=== PATIENT | female | born 1935 | race Caucasian/White ===

== ENCOUNTER → 2017-01-12 | Outpatient (CLI) | payer BC ==
[2015-10-27 11:59] VITALS: BP 139/58
[~2017-01-12] MED LIST: ASPI81TA50 PO; ATOR40TA59 PO; FURO-68 PO; LISI-334 PO; METO50TA2 PO; OXYM30SP11 NS
--- NOTE | 2017-01-12 16:49 | RAD ---
EXAM: Bilateral breast ultrasound, complete. HISTORY: Breast asymmetry, right larger than left. COMPARISON: None. FINDINGS: Sonography of both entire breasts was performed. Special attention was patent to the asymmetric region of fat deposition along the right lateral chest wall. At the site of concern along the right lateral chest wall, only normal subcutaneous fat is identified. There is no encapsulated lipoma or other suspicious mass. Elsewhere in both breasts, no suspicious abnormalities seen. There are scattered small cysts bilaterally that measure 6 mm or less. IMPRESSION: 1. BI-RADS Category 2: Benign findings. 2. The region of concern along the right lateral chest wall appears to be normal subcutaneous fat. 3. The patient declined diagnostic mammography today. This is recommended to complete the assessment. The patient was unclear as to whether she would desire treatment for breast cancer if it occurred. If such treatment is desired, bilateral diagnostic mammography is recommended now, and bilateral screening mammography is recommended yearly.
== END | disposition home or self-care (01) ==
LOC: US 14:14
PROVIDERS: ATTEND Internal Medicine
DX: N64.89 Other specified disorders of breast (principal)
CPT/HCPCS: 76641

== ENCOUNTER 2017-07-09 06:50 | Emergency (ER) | payer BC ==
[2017-07-09] MEDS: METOPROLOL TART IMMED RELEASE 50 MG TABLET. PO (09:24)
[2017-07-09] MEDS: LISINOPRIL 10 MG TABLET PO (09:24)
[2017-07-09] MEDS: IBUPROFEN 400 MG TABLET. PO (09:40)
== END 2017-07-09 09:38 | disposition home or self-care (01) ==
LOC: ER 06:50
DX: S30.0XXA Contusion of lower back and pelvis, initial encounter (principal); I10 Essential (primary) hypertension; I25.10 Atherosclerotic heart disease of native coronary artery without angina pectoris; Z86.73 Personal history of transient ischemic attack (TIA), and cerebral infarction without residual deficits; W18.39XA Other fall on same level, initial encounter; Y93.89 Activity, other specified; Y99.8 Other external cause status; Y92.89 Other specified places as the place of occurrence of the external cause
CPT/HCPCS: 70450; 73502; 99284

== ENCOUNTER 2020-11-14 19:48 | Observation (INO) | payer BC ==
[~2020-11-14] VITALS: Ht 165.1 cm; Wt 70.4 kg
[~2020-11-14 19:48] MED LIST changes: -LISI-334 PO; +LISI20TA18 PO; -METO50TA2 PO; +METO50TA6 PO; +OXYM-27 NS; -OXYM30SP11 NS
--- NOTE | 2020-11-14 21:40 | PHYS DOC ---
Past Medical History Past Medical History: CAD, Hypertension Past Surgical History: Coronary Bypass Surgery, Hip Replacement, Other Additional Past Surgical Histo: ELBOW, left hip Smoking Status: Never Smoker Alcohol Use: None Drug Use: None General Adult EDM: Chief Complaint: CHEST PAIN HPI: HPI: 85-year-old female patient with self-reported history of cardiac disease presents the emergency department complaining of chest pain that started around 1400 today and is intermittent, sharp and radiates from her front of the chest to the back in between her shoulders. She reports she had a additional episode of chest pain around aged 89 today when she called her family to take her to the emergency department. She admits to being under recent stress due to a recent of a family member. The patient denies abdominal pain, sweating, shortness of air, nausea, vomiting, palpitations or dizziness. Review of Systems: Review of Systems: ROS otherwise negative except for what was mentioned in HPI Heart Score: C/O Chest Pain: Yes HEART Score for Chest Pain: HEART Score for Chest Pain Response (Comments) Value History Moderately Suspicious 1 ECG Normal 0 Age > 65 2 Risk Factors >3 Risk Factors or Hx CAD 2 Troponin < Normal Limit 0 Total 5 Allergies: Allergies: Allergies Coded Allergies Type Severity Reaction Last Updated Verified No Known Drug Allergies 12/02/14 No Physical Exam: PE: Constitutional: No acute distress, non-toxic appearance. HENT: Atraumatic, bilateral external ears normal, nose normal. Eyes: Conjunctiva normal, no discharge. Neck: Normal range of motion, supple, no stridor. Cardiovascular: Heart rate regular rhythm. 2+ radial pulses and equal Lungs & Thorax: No respiratory distress, symmetrical expansion. Chest wall: No reproducible chest wall tenderness to palpation, no lesions. Abdomen: Soft, no tenderness Skin: Warm, dry. Extremities: No tenderness, no cyanosis, ROM intact, no edema. Neurologic: Alert and oriented X 3, normal motor function, normal sensory function, no focal deficits noted. GCS 15. Psychologic: Affect normal, judgment normal, mood normal. Current Patient Data: Labs: Laboratory Tests Test 11/14/20 22:10 White Blood Count 8.4 x10^3/uL (4.0-11.0) Red Blood Count 4.08 x10^6/uL (3.50-5.40) Hemoglobin 11.8 g/dL (12.0-15.5) Hematocrit 35.9 % (36.0-47.0) Mean Corpuscular Volume 88 fL (79-100) Mean Corpuscular Hemoglobin 29 pg (25-35) Mean Corpuscular Hemoglobin Concent 33 g/dL (31-37) Red Cell Distribution Width 15.5 % (11.5-14.5) Platelet Count 221 x10^3/uL (140-400) Neutrophils (%) (Auto) 75 % (31-73) Lymphocytes (%) (Auto) 15 % (24-48) Monocytes (%) (Auto) 9 % (0-9) Eosinophils (%) (Auto) 1 % (0-3) Basophils (%) (Auto) 1 % (0-3) Neutrophils # (Auto) 6.3 x10^3/uL (1.8-7.7) Lymphocytes # (Auto) 1.3 x10^3/uL (1.0-4.8) Monocytes # (Auto) 0.7 x10^3/uL (0.0-1.1) Eosinophils # (Auto) 0.1 x10^3/uL (0.0-0.7) Basophils # (Auto) 0.1 x10^3/uL (0.0-0.2) Sodium Level 142 mmol/L (136-145) Potassium Level 3.7 mmol/L (3.5-5.1) Chloride Level 103 mmol/L (98-107) Carbon Dioxide Level 32 mmol/L (21-32) Anion Gap 7 (6-14) Blood Urea Nitrogen 20 mg/dL (7-20) Creatinine 1.6 mg/dL (0.6-1.0) Estimated GFR (Cockcroft-Gault) 30.7 Glucose Level 108 mg/dL (70-99) Calcium Level 8.7 mg/dL (8.5-10.1) Troponin I Quantitative < 0.017 ng/mL (0.000-0.055) GM-Zoy-T-Type Natriuretic Peptide 379 pg/mL (0-449) Vital Signs: Vital Signs Date Time Temp Pulse Resp B/P (MAP) Pulse Ox O2 Delivery O2 Flow Rate FiO2 11/14/20 21:38 63 18 200/81 (120) 94 Room Air 11/14/20 20:09 97.9 65 131/96 (108) 97 Room Air 97.9 EKG: EK: Normal sinus rhythm rate of 69, no ST-T wave changes, no ectopic beats, left axis deviation, normal MD, QRS, and QTc intervals. Impression: Normal EKG. interpreted by meRuperto D.O. Radiology/Procedures: Radiology/Procedures: Exam: Chest one view INDICATION: Chest pain TECHNIQUE: Frontal view of chest Comparisons: None FINDINGS: Sternotomy wires are noted. The cardiomediastinal silhouette and pulmonary vessels are within normal limits. The lung and pleural spaces are clear. IMPRESSION: No acute pulmonary process. Electronically signed by: Olga Montes MD (11/14/2020 10:23 PM) [] Course & Med Decision Making: Course & Med Decision Making I discussed case with the radiologist on-call, who refused to do the CT angiogram given the patient's kidney function. We will admit the patient to the hospital under Dr. Haas. She clinically looks well at the time of admission. My Orders - RUPERTO MALHOTRA DO Procedure Category Date Status Time Basic Metabolic Panel LAB 11/14/20 Complete 21:52 Cbc W Autodiff LAB 11/14/20 Complete 21:52 Ua, Cult If Indicated LAB 11/14/20 Logged 21:52 Portable Chest 1v RAD 11/14/20 Resulted 21:[address] 11/14/20 Logged 21:52 Nt-Pro Bnp LAB 11/14/20 Complete 21:52 Troponini LAB 11/14/20 Complete 21:52 Troponini LAB 11/15/20 Verified 00:52 Troponini LAB 11/15/20 Verified 03:52 12 Lead Ekg EKG 11/14/20 Logged 21:52 Iv Normal Saline PHA 11/14/20 In Process 500ml Bag (Iv Sodium 22:30 Departure Departure Impression: Primary Impression: Chest pain Disposition: ADMITTED INPATIENT Admitting Physician: LEONELA (Waldo) Condition: STABLE Referrals: SHIVA SANTOS MD (PCP) RUPERTO MALHOTRA DO Nov 14, 2020 21:40
[2020-11-14 22:19] LABS: BASO # 0.1 x10^3/uL (0.0-0.2); BASO % 1 % (0-3); EOS # 0.1 x10^3/uL (0.0-0.7); EOS % 1 % (0-3); HEMATOCRIT 35.9 % (36.0-47.0); HEMOGLOBIN 11.8 g/dL (12.0-15.5); LYMPH # 1.3 x10^3/uL (1.0-4.8); LYMPH % 15 % (24-48); MEAN CORPUSCULAR HEMOGLOBIN 29 pg (25-35); MEAN CORPUSCULAR HGB CONC 33 g/dL (31-37); MEAN CORPUSCULAR VOLUME 88 fL (79-100); MONO # 0.7 x10^3/uL (0.0-1.1); MONO % 9 % (0-9); NEUT # 6.3 x10^3/uL (1.8-7.7); NEUT % 75 % (31-73); PLATELET COUNT 221 x10^3/uL (140-400); RED BLOOD COUNT 4.08 x10^6/uL (3.50-5.40); RED CELL DISTRIBUTION WIDTH 15.5 % (11.5-14.5); WHITE BLOOD COUNT 8.4 x10^3/uL (4.0-11.0)
--- NOTE | 2020-11-14 22:25 | RAD ---
Exam: Chest one view INDICATION: Chest pain TECHNIQUE: Frontal view of chest Comparisons: None FINDINGS: Sternotomy wires are noted. The cardiomediastinal silhouette and pulmonary vessels are within normal limits. The lung and pleural spaces are clear. IMPRESSION: No acute pulmonary process. Electronically signed by: Olga Montes MD (11/14/2020 10:23 PM) [facility]
[2020-11-14 22:26] LABS: CALCIUM 8.7 mg/dL (8.5-10.1); CREATININE 1.6 mg/dL (0.6-1.0); GFR 30.7; POTASSIUM 3.7 mmol/L (3.5-5.1)
[2020-11-14] MEDS ORDERED: IV NORMAL SALINE 500ML BAG 500 ML IV ONE (22:30)
[2020-11-14] MEDS ORDERED: ONDANSETRON PF 4 MG/2 ML VIAL. IVP PRN (23:00)
[2020-11-14] MEDS ORDERED: ACETAMINOPHEN 325 MG TABLET. PO PRN (23:00)
[2020-11-14] MEDS ORDERED: MORPHINE SULFATE 4 MG/ML INJ. IVP PRN (23:00)
[2020-11-14] MEDS ORDERED: IV NORMAL SALINE 1000ML BAG 1,000 ML IV ONE (23:30)
[2020-11-15] VITALS (7 sets, daily range): BP systolic 116–150; BP diastolic 52–75
--- NOTE | 2020-11-15 02:39 | EKG ---
[facility] [address] [place] [address] Test Date: 2020-11-14 Test Time: 19:57:38 Pat Name: RHETT WOODALL Department: Room: 580 1 Gender: F Color Tester: : 1935 Requested By: JEFF MALHOTRA Order Number: [id number] Reading MD: David Hernandez Measurements Intervals [place] Rate: 69 P: -30 HI: 156 QRS: -30 QRSD: 88 T: 10 QT: 422 QTc: 454 Interpretive Statements SINUS RHYTHM ABNORMAL LEFT AXIS DEVIATION LEFT ANTERIOR FASCICULAR BLOCK QRS(T) CONTOUR ABNORMALITY CONSISTENT WITH ANTEROSEPTAL INFARCT PROBABLY OLD ABNORMAL ECG Electronically Signed On 11-16-2020 13:21:10 CDT by David Hernandez
[2020-11-15] MEDS ORDERED: POTA99TA3 PO (02:50)
[2020-11-15] MEDS ORDERED: LOSA-73 PO (02:50)
[2020-11-15] MEDS ORDERED: PRED20TA PO (02:50)
[2020-11-15] MEDS ORDERED: ATOR20TA58 PO (02:50)
[2020-11-15 03:59] LABS: BASO % 1 % (0-3); EOS % 1 % (0-3); HEMATOCRIT 31.3 % (36.0-47.0); HEMOGLOBIN 10.5 g/dL (12.0-15.5); LYMPH # 1.4 x10^3/uL (1.0-4.8); LYMPH % 21 % (24-48); MEAN CORPUSCULAR HEMOGLOBIN 29 pg (25-35); MEAN CORPUSCULAR HGB CONC 34 g/dL (31-37); MEAN CORPUSCULAR VOLUME 86 fL (79-100); MONO # 0.6 x10^3/uL (0.0-1.1); MONO % 9 % (0-9); NEUT # 4.6 x10^3/uL (1.8-7.7); NEUT % 69 % (31-73); PLATELET COUNT 205 x10^3/uL (140-400); RED BLOOD COUNT 3.65 x10^6/uL (3.50-5.40); RED CELL DISTRIBUTION WIDTH 15.6 % (11.5-14.5); WHITE BLOOD COUNT 6.7 x10^3/uL (4.0-11.0)
[2020-11-15 04:13] LABS: CALCIUM 8.1 mg/dL (8.5-10.1); CREATININE 1.4 mg/dL (0.6-1.0); GFR 35.8; POTASSIUM 3.7 mmol/L (3.5-5.1)
--- NOTE | 2020-11-15 10:40 | PDOC1 ---
History and Physical Date of Admission Date of Admission DATE: 11/15/20 TIME: 10:40 Identification/Chief Complaint Chief Complaint chest pain History of Present Illness History of Present Illness 85-year-old female patient with self-reported history of cardiac disease pre sented the emergency department complaining of chest pain that started around 1400 9-12 and is intermittent, sharp and radiates from her front of the chest to the back in between her shoulders. she had a additional episode of chest pain around aged 89 9-12 when she called her family to take her to the emergency department. troponin i neg x 3 She admits to being under recent stress due to a recent of a family member. 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 in 2016 Although, her left-sided weakness resolved relatively quickly Cardiovascular: CAD, HTN Pulmonary: No pertinent hx CENTRAL NERVOUS SYSTEM: Other GI: No pertinent hx Heme/Onc: No pertinent hx Hepatobiliary: No pertinent hx Psych: No pertinent hx Musculoskeletal: Osteoarthritis Rheumatologic: No pertinent hx Infectious disease: No pertinent hx Renal/: No pertinent hx Endocrine: No pertinent hx, Osteoporosis Past Surgical History Past Surgical History: CABG Family History Family History: High Cholestrol, Hypertension Social History Smoke: No ALCOHOL: none Drugs: None Current Problem List Problem List Problems Medical Problems: (1) Chest pain Status: Acute Current Medications Current Medications Current Medications Sodium Chloride 500 ml @ 500 mls/hr 1X ONCE IV Last administered on 11/14/20at 22:30; Start 11/14/20 at 22:30; Stop 11/14/20 at 23:29; Status DC Ondansetron HCl (Zofran) 4 mg PRN Q8HRS PRN IVP NAUSEA/VOMITING 1ST CHOICE; Start 11/14/20 at 23:00; Stop 11/15/20 at 22:59 Morphine Sulfate (Morphine Sulfate) 4 mg PRN Q4HRS PRN IVP SEVERE PAIN 7-10; Start 11/14/20 at 23:00; Stop 9/13/21 at 22:59 Acetaminophen (Tylenol) 650 mg PRN Q4HRS PRN PO FEVER > 100.3'F; Start 11/14/20 at 23:00; Stop 11/15/20 at 22:59 Sodium Chloride 1,000 ml @ 100 mls/hr 1X ONCE IV Last administered on 11/15/20at 01:27; Start 11/14/20 at 23:30; Stop 11/15/20 at 09:29; Status DC Active Scripts Active Nasal Decongestant (Oxymetazoline Hcl) 30 Ml [place] 2 [place] NS PRN Q12HR PRN 14 Days Reported Prednisone 20 Mg Tablet 1 Tab PO PRN DAILY PRN Potassium Gluconate 99 Mg Tablet 99 Mg PO DAILY Atorvastatin Calcium 20 Mg Tablet 20 Mg PO HS Losartan Potassium 50 Mg Tablet 50 Mg PO DAILY Aspir-Low (Aspirin) 81 Mg Tablet.dr 1 Tab PO DAILY Lasix (Furosemide) 40 Mg Tablet 1 Tab PO DAILY Metoprolol Tartrate 50 Mg Tablet 1 Tab PO BID Allergies Allergies: Coded Allergies: No Known Drug Allergies (Unverified , 12/02/14) ROS Review of System 14 pt ros otherwise neg General: No: Chills, Night Sweats, Fatigue, Malaise, Appetite, Other PSYCHOLOGICAL ROS: YES: Anxiety Eyes: Yes Decreased vision; No Blurry vision, No Double vision, No Dry eyes, No Excessive tearing, No Eye Pain, No Itchy Eyes, No Loss of vision, No Photophobia, No Scotomata, No Uses contacts, No Uses glasses, No Other HEENT: No: Heacaches, Visual Changes, Hearing change, Nasal congestion, Nasal discharge, Oral lesions, Sinus pain, Sore Throat, Epistaxis, Sneezing, Snoring, Tinnitus, Vertigo, Vocal changes, Other ALLERGY AND IMMUNOLOGY: No: Hives, Insect Bite Sensitivity, Itchy/Watery Eyes, Nasal Congestion, Post Nasal Drip, Seasonal Allergies, Other Hematological and Lymphatic: No: Bleeding Problems, Blood Clots, Blood Transfusions, Brusing, Night Sweats, Pallor, Swollen Lymph Nodes, Other ENDOCRINE: No: Breast Changes, Galactorrhea, Hair Pattern Changes, Hot Flashes, Malaise/lethargy, Mood Swings, Palpitations, Polydipsia/polyuria, Skin Changes, Temperature Intolerance, Unexpected Weight Changes, Other Cardiovascular: yes Chest Pain; No Palpitations, No Orthopnea, No Paroxysmal Noc. Dyspnea, No Edema, No Lt Headedness, No Other Gastrointestinal: No Nausea, No Vomiting, No Abdominal Pain, No Diarrhea, No Constipation, No Melena, No Hematochezia, No Other Genitourinary: No Dysuria, No Frequency, No Incontinence, No Hematuria, No Retention, No Discharge, No Urgency, No Pain, No Flank Pain, No Other, No , No , No , No , No , No , No Musculoskeletal: Yes Joint Stiffness; No Gait Disturbance, No Joint Pain, No Joint Swelling, No Muscle Pain, No Muscular Weakness, No Pain In:, No Swelling In:, No Other Neurological: No Behavorial Changes, No Bowel/Bladder ControlChng, No Confusion, No Dizziness, No Gait Disturbance, No Headaches, No Impaired Coord/balance, No Memory Loss, No Numbness/Tingling, No Seizures, No Speech Problems, No Tremors, No Visual Changes, No Weakness, No Other Physical Exam Physical Exam Constitutional: No acute distress, non-toxic appearance. HENT: Atraumatic, bilateral external ears normal, nose normal. Eyes: Conjunctiva normal, no discharge. Neck: Normal range of motion, supple, no stridor. Cardiovascular: Heart rate regular rhythm. 2+ radial pulses and equal Lungs & Thorax: No respiratory distress, symmetrical expansion. Chest wall: No reproducible chest wall tenderness to palpation, no lesions. Abdomen: Soft, no tenderness Skin: Warm, dry. Extremities: No tenderness, no cyanosis, ROM intact, no edema. Neurologic: Alert and oriented X 3, normal motor function, normal sensory function, no focal deficits noted. Psychologic: Affect normal, judgment normal, mood normal. General: Alert, Oriented X3, Cooperative, No acute distress HEENT: Atraumatic, PERRLA, EOMI, Mucous membr. moist/pink Heart: RRR, no thrills, no gallops, no jug vein distention Breasts: Not examined Abdomen: Soft, No tenderness Rectal Exam: not examined PELVIC: Examination not indicated Extremities: No cyanosis Skin: No breakdown Neuro: Normal speech, Cranial nerves 3-12 NL Psych/Mental Status: Mental status NL Vitals Vitals Vital Signs Date Time Temp Pulse Resp B/P (MAP) Pulse Ox O2 Delivery O2 Flow Rate FiO2 11/15/20 07:00 98.5 66 20 126/52 (76) 99 Room Air 98.5 Labs Labs Laboratory Tests Test 11/14/20 22:10 11/15/20 00:50 11/15/20 03:50 White Blood Count 8.4 x10^3/uL (4.0-11.0) 6.7 x10^3/uL (4.0-11.0) Red Blood Count 4.08 x10^6/uL (3.50-5.40) 3.65 x10^6/uL (3.50-5.40) Hemoglobin 11.8 g/dL (12.0-15.5) 10.5 g/dL (12.0-15.5) Hematocrit 35.9 % (36.0-47.0) 31.3 % (36.0-47.0) Mean Corpuscular Volume 88 fL (79-100) 86 fL (79-100) Mean Corpuscular Hemoglobin 29 pg (25-35) 29 pg (25-35) Mean Corpuscular Hemoglobin Concent 33 g/dL (31-37) 34 g/dL (31-37) Red Cell Distribution Width 15.5 % (11.5-14.5) 15.6 % (11.5-14.5) Platelet Count 221 x10^3/uL (140-400) 205 x10^3/uL (140-400) Neutrophils (%) (Auto) 75 % (31-73) 69 % (31-73) Lymphocytes (%) (Auto) 15 % (24-48) 21 % (24-48) Monocytes (%) (Auto) 9 % (0-9) 9 % (0-9) Eosinophils (%) (Auto) 1 % (0-3) 1 % (0-3) Basophils (%) (Auto) 1 % (0-3) 1 % (0-3) Neutrophils # (Auto) 6.3 x10^3/uL (1.8-7.7) 4.6 x10^3/uL (1.8-7.7) Lymphocytes # (Auto) 1.3 x10^3/uL (1.0-4.8) 1.4 x10^3/uL (1.0-4.8) Monocytes # (Auto) 0.7 x10^3/uL (0.0-1.1) 0.6 x10^3/uL (0.0-1.1) Eosinophils # (Auto) 0.1 x10^3/uL (0.0-0.7) 0.0 x10^3/uL (0.0-0.7) Basophils # (Auto) 0.1 x10^3/uL (0.0-0.2) 0.0 x10^3/uL (0.0-0.2) Sodium Level 142 mmol/L (136-145) 144 mmol/L (136-145) Potassium Level 3.7 mmol/L (3.5-5.1) 3.7 mmol/L (3.5-5.1) Chloride Level 103 mmol/L (98-107) 107 mmol/L (98-107) Carbon Dioxide Level 32 mmol/L (21-32) 31 mmol/L (21-32) Anion Gap 7 (6-14) 6 (6-14) Blood Urea Nitrogen 20 mg/dL (7-20) 18 mg/dL (7-20) Creatinine 1.6 mg/dL (0.6-1.0) 1.4 mg/dL (0.6-1.0) Estimated GFR (Cockcroft-Gault) 30.7 35.8 Glucose Level 108 mg/dL (70-99) 95 mg/dL (70-99) Calcium Level 8.7 mg/dL (8.5-10.1) 8.1 mg/dL (8.5-10.1) Troponin I Quantitative < 0.017 ng/mL (0.000-0.055) < 0.017 ng/mL (0.000-0.055) < 0.017 ng/mL (0.000-0.055) GD-Niz-S-Type Natriuretic Peptide 379 pg/mL (0-449) Laboratory Tests Test 11/14/20 22:10 11/15/20 00:50 11/15/20 03:50 White Blood Count 8.4 x10^3/uL (4.0-11.0) 6.7 x10^3/uL (4.0-11.0) Red Blood Count 4.08 x10^6/uL (3.50-5.40) 3.65 x10^6/uL (3.50-5.40) Hemoglobin 11.8 g/dL (12.0-15.5) 10.5 g/dL (12.0-15.5) Hematocrit 35.9 % (36.0-47.0) 31.3 % (36.0-47.0) Mean Corpuscular Volume 88 fL (79-100) 86 fL (79-100) Mean Corpuscular Hemoglobin 29 pg (25-35) 29 pg (25-35) Mean Corpuscular Hemoglobin Concent 33 g/dL (31-37) 34 g/dL (31-37) Red Cell Distribution Width 15.5 % (11.5-14.5) 15.6 % (11.5-14.5) Platelet Count 221 x10^3/uL (140-400) 205 x10^3/uL (140-400) Neutrophils (%) (Auto) 75 % (31-73) 69 % (31-73) Lymphocytes (%) (Auto) 15 % (24-48) 21 % (24-48) Monocytes (%) (Auto) 9 % (0-9) 9 % (0-9) Eosinophils (%) (Auto) 1 % (0-3) 1 % (0-3) Basophils (%) (Auto) 1 % (0-3) 1 % (0-3) Neutrophils # (Auto) 6.3 x10^3/uL (1.8-7.7) 4.6 x10^3/uL (1.8-7.7) Lymphocytes # (Auto) 1.3 x10^3/uL (1.0-4.8) 1.4 x10^3/uL (1.0-4.8) Monocytes # (Auto) 0.7 x10^3/uL (0.0-1.1) 0.6 x10^3/uL (0.0-1.1) Eosinophils # (Auto) 0.1 x10^3/uL (0.0-0.7) 0.0 x10^3/uL (0.0-0.7) Basophils # (Auto) 0.1 x10^3/uL (0.0-0.2) 0.0 x10^3/uL (0.0-0.2) Sodium Level 142 mmol/L (136-145) 144 mmol/L (136-145) Potassium Level 3.7 mmol/L (3.5-5.1) 3.7 mmol/L (3.5-5.1) Chloride Level 103 mmol/L (98-107) 107 mmol/L (98-107) Carbon Dioxide Level 32 mmol/L (21-32) 31 mmol/L (21-32) Anion Gap 7 (6-14) 6 (6-14) Blood Urea Nitrogen 20 mg/dL (7-20) 18 mg/dL (7-20) Creatinine 1.6 mg/dL (0.6-1.0) 1.4 mg/dL (0.6-1.0) Estimated GFR (Cockcroft-Gault) 30.7 35.8 Glucose Level 108 mg/dL (70-99) 95 mg/dL (70-99) Calcium Level 8.7 mg/dL (8.5-10.1) 8.1 mg/dL (8.5-10.1) Troponin I Quantitative < 0.017 ng/mL (0.000-0.055) < 0.017 ng/mL (0.000-0.055) < 0.017 ng/mL (0.000-0.055) EK-Yzd-J-Type Natriuretic Peptide 379 pg/mL (0-449) Images Images PROCEDURE MRI brain with and without contrast. HISTORY Severe mental status change. TECHNIQUE Sagittal T1, axial T1, axial T2, axial FLAIR, axial T2 gradient, diffusion imaging with ADC map, post-contrast axial, post contrast sagittal, and post-contrast coronal sequences are provided. 9 milliliters of intravenous Gadavist was administered without complication. COMPARISON CT head from earlier today. FINDINGS There is a large area of restricted diffusion involving the right temporal lobe and parietal lobe as well as the insula and caudate head. There is mild ADC correlate. There is associated blooming artifact. There is associated enhancement although the enhancement predominantly appears cortical. Cortical enhancement as well as the restricted diffusion and associated FLAIR hyperintensity is most suggestive of subacute infarct. Old blood product is noted in the left basal ganglia compatible with remote microhemorrhage. There is prominence of the ventricles and sulci. There is mild probable small-vessel ischemic disease. There is motion degradation, intracranial flow voids are preserved centrally although the right middle cerebral artery flow void is not well evaluated. The sagittal midline structures are unremarkable. There is ethmoid mucosal thickening. IMPRESSION Imaging characteristics most suggestive of subacute infarct involving the right temporal lobe, parietal lobe, insula, and basal ganglia. Three-month follow-up MRI to the document expected evolution can be considered. Electronically signed by: Henry Fierro MD (Oct 20, 2015 12:11:46) PATIENT: RHETT WOODALL ACCOUNT: [id number] : 1935 LOCATION: ER AGE: 85 SEX: F EXAM STATUS: REG ER ORD. PHYSICIAN: JEFF MALHOTRA DO REASON: CHEST PAIN PROCEDURE: PORTABLE CHEST 1V Exam: Chest one view INDICATION: Chest pain TECHNIQUE: Frontal view of chest Comparisons: None FINDINGS: Sternotomy wires are noted. The cardiomediastinal silhouette and pulmonary vessels are within normal limits. The lung and pleural spaces are clear. IMPRESSION: No acute pulmonary process. Electronically signed by: Olga Izquierdo MD (11/14/2020 10:23 PM) [facility] DICTATED and SIGNED BY: OLGA IZQUIERDO MD DATE: 11/14/20 [id number] 0 talk about your own wishes for healthcare in case youre ever not able to tell your loved ones or healthcare team what your wishes are. If you became really sick tomorrow, would your loved ones or healthcare team know what your wishes were? Here are some examples of different sets of goals and health care directives for your conversations: My wish is to use all medical therapies including resuscitation (such as CPR) and artificial life-sustaining treatments (such as machines and medicine) in an intensive care unit, to keep me alive if at all possible. My wish is to live as long as possible, but I dont want attempts to bring me back to life if my heart and breathing stop. I would like full medical care but without using resuscitation or artificial life-sustaining intensive treatments, if these are unlikely to make me live longer or restore me to a certain quality of life. I will accept treatments that try to fix medical problems, but if Im not getting better or going to have a certain quality of life, I would want to switch to focusing only on my comfort and letting my happen naturally. My wish is for healthcare to focus on my comfort and lessen suffering. I would like medical care that focuses only on my quality of life and that allows me to naturally. Consider: What does a good quality of life mean for me? For many people, it is the ability to live independently and tell their own story. I may define it differently. Under what circumstances would I not want to be kept alive by medical treatments, resuscitation, or intensive care? What kind of changes to my health or life might make me change my mind? If I clearly am facing the last chapter of my life, how do I want the story to end? Who do I want to speak for me if I cant speak for myself? Do they understand my preferences? Are they willing to assume the role of my Durable Power of Customer Service Voice? Can I change my Goals of Care Designation? Yes, your Goals of Care Designation can be changed at any time. 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
--- NOTE | 2020-11-15 11:41 | NUR ---
SW following. Discussed with RN, pt from home with son, room air, cardiac diet. Pt uses a walker and gets around okay, per RN. PT/OT ST ordered. Cardiology following. SW will continue to follow.
--- NOTE | 2020-11-15 13:32 | PDOC2 ---
MEHUL PASCUAL OCEANOGRAPHY PROFESSOR 11/15/20 1332: CARDIAC CONSULT DATE OF CONSULT Date of Consult DATE: 11/15/20 TIME: 13:28 REASON FOR CONSULT Reason for Consult: Chest pain REFERRING PHYSICIAN Referring Physician: Dr. Clayton SOURCE Source: Chart review, Patient HISTORY OF PRESENT ILLNESS HISTORY OF PRESENT ILLNESS This is an 85 yo female who presented secondary to chest pain. Patient reports intermittent sharp, stabbing pain in her central chest. Radiated through to her back. Not associated with dizziness, shortness of breath, palpitations, or nausea/vomiting. Reports pain lasts seconds and resolves without intervention. Is feeling well today and has no further chest pain. PAST MEDICAL HISTORY Cardiovascular: AFIB, CAD, HTN, Hyperlipidemia Psych: Depression Musculoskeletal: Osteoarthritis PAST SURGICAL HISTORY Past Surgical History: Cholecystectomy, CABG FAMILY HISTORY Family History: Hypertension SOCIAL HISTORY Smoke: No ALCOHOL: none Drugs: None CURRENT MEDICATIONS CURRENT MEDICATIONS Current Medications Medications (Trade) Dose Ordered Sig/Linnette Route PRN Reason Start Time Stop Time Status Last Admin Dose Admin Sodium Chloride 500 ml @ 500 mls/hr 1X ONCE IV 11/14/20 22:30 11/14/20 23:29 DC 11/14/20 22:30 Sodium Chloride 1,000 ml @ 100 mls/hr 1X ONCE IV 11/14/20 23:30 11/15/20 09:29 DC 11/15/20 01:27 ALLERGIES ALLERGIES: Coded Allergies: No Known Drug Allergies (Unverified , 12/02/14) ROS Review of System 14 point ROS conducted with pertinent positives noted above in hPI PHYSICAL EXAM General: Alert, Oriented X3, Cooperative, No acute distress HEENT: Atraumatic Lungs: Clear to auscultation Heart: Regular rate Abdomen: Soft, No tenderness Extremities: No edema, Normal pulses Skin: No significant lesion Neuro: Normal speech, Sensation intact Psych/Mental Status: Mental status NL, Mood NL MUSCULOSKELETAL: Osteoarthritic changes both hands VITALS/I&O VITALS/I&O: Vital Signs Date Time Temp Pulse Resp B/P (MAP) Pulse Ox O2 Delivery O2 Flow Rate FiO2 11/15/20 11:00 98.3 72 18 140/59 (86) 99 Room Air 98.3 I & O 11/14/20 11/14/20 11/15/20 15:00 23:00 07:00 Intake Total 150 ml Balance 150 ml LABS Lab: Laboratory Tests Test 11/14/20 22:10 11/15/20 00:50 11/15/20 03:50 White Blood Count 8.4 x10^3/uL (4.0-11.0) 6.7 x10^3/uL (4.0-11.0) Red Blood Count 4.08 x10^6/uL (3.50-5.40) 3.65 x10^6/uL (3.50-5.40) Hemoglobin 11.8 g/dL (12.0-15.5) L 10.5 g/dL (12.0-15.5) L Hematocrit 35.9 % (36.0-47.0) L 31.3 % (36.0-47.0) L Mean Corpuscular Volume 88 fL (79-100) 86 fL (79-100) Mean Corpuscular Hemoglobin 29 pg (25-35) 29 pg (25-35) Mean Corpuscular Hemoglobin Concent 33 g/dL (31-37) 34 g/dL (31-37) Red Cell Distribution Width 15.5 % (11.5-14.5) H 15.6 % (11.5-14.5) H Platelet Count 221 x10^3/uL (140-400) 205 x10^3/uL (140-400) Neutrophils (%) (Auto) 75 % (31-73) H 69 % (31-73) Lymphocytes (%) (Auto) 15 % (24-48) L 21 % (24-48) L Monocytes (%) (Auto) 9 % (0-9) 9 % (0-9) Eosinophils (%) (Auto) 1 % (0-3) 1 % (0-3) Basophils (%) (Auto) 1 % (0-3) 1 % (0-3) Neutrophils # (Auto) 6.3 x10^3/uL (1.8-7.7) 4.6 x10^3/uL (1.8-7.7) Lymphocytes # (Auto) 1.3 x10^3/uL (1.0-4.8) 1.4 x10^3/uL (1.0-4.8) Monocytes # (Auto) 0.7 x10^3/uL (0.0-1.1) 0.6 x10^3/uL (0.0-1.1) Eosinophils # (Auto) 0.1 x10^3/uL (0.0-0.7) 0.0 x10^3/uL (0.0-0.7) Basophils # (Auto) 0.1 x10^3/uL (0.0-0.2) 0.0 x10^3/uL (0.0-0.2) Sodium Level 142 mmol/L (136-145) 144 mmol/L (136-145) Potassium Level 3.7 mmol/L (3.5-5.1) 3.7 mmol/L (3.5-5.1) Chloride Level 103 mmol/L (98-107) 107 mmol/L (98-107) Carbon Dioxide Level 32 mmol/L (21-32) 31 mmol/L (21-32) Anion Gap 7 (6-14) 6 (6-14) Blood Urea Nitrogen 20 mg/dL (7-20) 18 mg/dL (7-20) Creatinine 1.6 mg/dL (0.6-1.0) H 1.4 mg/dL (0.6-1.0) H Estimated GFR (Cockcroft-Gault) 30.7 35.8 Glucose Level 108 mg/dL (70-99) H 95 mg/dL (70-99) Calcium Level 8.7 mg/dL (8.5-10.1) 8.1 mg/dL (8.5-10.1) L Troponin I Quantitative < 0.017 ng/mL (0.000-0.055) < 0.017 ng/mL (0.000-0.055) < 0.017 ng/mL (0.000-0.055) UV-Yqu-L-Type Natriuretic Peptide 379 pg/mL (0-449) Laboratory Tests 11/14/20 22:10 11/15/20 03:50 Laboratory Tests 11/14/20 22:10 11/15/20 03:50 ECHOCARDIOGRAM ECHOCARDIOGRAM 04/22/18 - 2-D + DOPPLER ECHOCARDIOGRAM Interpretation Summary Normal left ventricular systolic function, estimated ejection fraction is 55%. Mild predominantly mid septal hypertrophy. There is severe mitral annular calcification without stenosis. Trace mitral valve regurgitation, mild tricuspid valve regurgitation. The pulmonary artery pressure could not be obtained. ASSESSMENT/PLAN ASSESSMENT/PLAN 1. Chest pain, atypical. AMI ruled out 2. CAD s/p CABG 2012. Follows with Dr. Michaelle DIEGO 3. Hypertension; controlled 4. Hyperlipidemia; statin 5. FLORIDALMA; improved 6. PAFIB; post-operative. presently SR 7. H/o CVA Recommendations Continue secondary prevention; ASA, statin, BB therapy Echo to assess LV systolic function Lipids Probable outpatient ischemic evaluations Supportive care YANELI RIVERA MD 11/15/20 1722: CARDIAC CONSULT ASSESSMENT/PLAN ASSESSMENT/PLAN Patient seen and examined I agree with our nurse practitioners assessment and plan. Chest pain, atypical. AMI ruled out. Troponin x3 is normal. Patient is feeling better today. Continuing aspirin and beta-blockers. CAD s/p CABG 2012. Follows with Dr. Michaelle DIEGO. Continue present medical treatments. Echo pending. Probable outpatient ischemia evaluation through her primary heel padder. Hypertension; controlled Hyperlipidemia; statin FLORIDALMA; improved PAFIB; post-operative. presently SR H/o CVA MEHUL PASCUAL APRN Nov 15, 2020 13:32 YANELI RIVERA MD Nov 15, 2020 17:22
[2020-11-15 13:58] LABS: CHOLESTEROL/HDL RATIO 2.5
[2020-11-15] MEDS ORDERED: METOPROLOL IV PUSH 5 MG/5 ML VIAL. IVP ONE (15:30)
[2020-11-15] MEDS: METOPROLOL TART IMMED RELEASE 50 MG TABLET. PO SCH ×2 (17:34→20:47)
[2020-11-15] MEDS ORDERED: ATORVASTATIN CALCIUM 20 MG TABLET PO SCH ×2 (21:00)
[2020-11-15] MEDS ORDERED: METOPROLOL TART IMMED RELEASE 50 MG TABLET. PO SCH (21:00)
[2020-11-16 03:00] VITALS: BP 120/72
[2020-11-16 07:00] VITALS: BP 138/72
--- NOTE | 2020-11-16 08:22 | PDOC ---
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 AMI ruled out CAD s/p CABG 2012. Follows with Dr. Michaelle DIEGO Hypertension; controlled ADMITTED CARDIOLOGY CONSULT Trend troponin i tele monitor dvt prophylaxis consider out pt stress //outpatient ischemia evaluation through her primary professor of early childhood education. 11-16-20 D/C PLANNING 33 MIN Justifications for Admission Justifications for Admission Other Justification History of Present Illness History of Present Illness Identification/Chief Complaint Chief Complaint chest pain History of Present Illness History of Present Illness 85-year-old female patient with self-reported history of cardiac disease presented the emergency department complaining of chest pain that started around 1400 9-12 and is intermittent, sharp and radiates from her front of the chest to the back in between her shoulders. she had a additional episode of chest pain around aged 89 9-12 when she called her family to take her to the emergency department. troponin i neg x 3 She admits to being under recent stress due to a recent of a family member. 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 in 2016 Although, her left-sided weakness resolved relatively quickly Cardiovascular: CAD, HTN Pulmonary: No pertinent hx CENTRAL NERVOUS SYSTEM: Other GI: No pertinent hx Heme/Onc: No pertinent hx Hepatobiliary: No pertinent hx Psych: No pertinent hx Musculoskeletal: Osteoarthritis Rheumatologic: No pertinent hx Infectious disease: No pertinent hx Renal/: No pertinent hx Endocrine: No pertinent hx, Osteoporosis Past Surgical History Past Surgical History: CABG Family History Family History: High Cholestrol, Hypertension Social History Smoke: No ALCOHOL: none Drugs: None Current Problem List Problem List Problems Medical Problems: (1) Chest pain Status: Acute Current Medications Current Medications Current Medications Sodium Chloride 500 ml @ 500 mls/hr 1X ONCE IV Last administered on 11/14/20at 22:30; Start 11/14/20 at 22:30; Stop 11/14/20 at 23:29; Status DC Ondansetron HCl (Zofran) 4 mg PRN Q8HRS PRN IVP NAUSEA/VOMITING 1ST CHOICE; Start 11/14/20 at 23:00; Stop 11/15/20 at 22:59 Morphine Sulfate (Morphine Sulfate) 4 mg PRN Q4HRS PRN IVP SEVERE PAIN 7-10; Start 11/14/20 at 23:00; Stop 11/15/20 at 22:59 Acetaminophen (Tylenol) 650 mg PRN Q4HRS PRN PO FEVER > 100.3'F; Start 11/14/20 at 23:00; Stop 11/15/20 at 22:59 Sodium Chloride 1,000 ml @ 100 mls/hr 1X ONCE IV Last administered on 11/15/20at 01:27; Start 11/14/20 at 23:30; Stop 11/15/20 at 09:29; Status DC Active Scripts Active Nasal Decongestant (Oxymetazoline Hcl) 30 Ml Kahlotus 2 Kahlotus NS PRN Q12HR PRN 14 Days Reported Prednisone 20 Mg Tablet 1 Tab PO PRN DAILY PRN Potassium Gluconate 99 Mg Tablet 99 Mg PO DAILY Atorvastatin Calcium 20 Mg Tablet 20 Mg PO HS Losartan Potassium 50 Mg Tablet 50 Mg PO DAILY Aspir-Low (Aspirin) 81 Mg Tablet.dr 1 Tab PO DAILY Lasix (Furosemide) 40 Mg Tablet 1 Tab PO DAILY Metoprolol Tartrate 50 Mg Tablet 1 Tab PO BID Allergies Allergies: Coded Allergies: No Known Drug Allergies (Unverified , 12/02/14) ROS Review of System 14 pt ros otherwise neg General: No: Chills, Night Sweats, Fatigue, Malaise, Appetite, Other PSYCHOLOGICAL ROS: YES: Anxiety Eyes: Yes Decreased vision; No Blurry vision, No Double vision, No Dry eyes, No Excessive tearing, No Eye Pain, No Itchy Eyes, No Loss of vision, No Photophobia, No Scotomata, No Uses contacts, No Uses glasses, No Other HEENT: No: Heacaches, Visual Changes, Hearing change, Nasal congestion, Nasal discharge, Oral lesions, Sinus pain, Sore Throat, Epistaxis, Sneezing, Snoring, Tinnitus, Vertigo, Vocal changes, Other ALLERGY AND IMMUNOLOGY: No: Hives, Insect Bite Sensitivity, Itchy/Watery Eyes, Nasal Congestion, Post Nasal Drip, Seasonal Allergies, Other Hematological and Lymphatic: No: Bleeding Problems, Blood Clots, Blood Transfusions, Brusing, Night Sweats, Pallor, Swollen Lymph Nodes, Other ENDOCRINE: No: Breast Changes, Galactorrhea, Hair Pattern Changes, Hot Flashes, Malaise/lethargy, Mood Swings, Palpitations, Polydipsia/polyuria, Skin Changes, Temperature Intolerance, Unexpected Weight Changes, Other Cardiovascular: yes Chest Pain; No Palpitations, No Orthopnea, No Paroxysmal Noc. Dyspnea, No Edema, No Lt Headedness, No Other Gastrointestinal: No Nausea, No Vomiting, No Abdominal Pain, No Diarrhea, No Constipation, No Melena, No Hematochezia, No Other Genitourinary: No Dysuria, No Frequency, No Incontinence, No Hematuria, No Retention, No Discharge, No Urgency, No Pain, No Flank Pain, No Other, No , No , No , No , No , No , No Musculoskeletal: Yes Joint Stiffness; No Gait Disturbance, No Joint Pain, No Joint Swelling, No Muscle Pain, No Muscular Weakness, No Pain In:, No Swelling In:, No Other Neurological: No Behavorial Changes, No Bowel/Bladder ControlChng, No Confusion, No Dizziness, No Gait Disturbance, No Headaches, No Impaired Coord/balance, No Memory Loss, No Numbness/Tingling, No Seizures, No Speech Problems, No Tremors, No Visual Changes, No Weakness, No Other Vitals Vitals Vital Signs Date Time Temp Pulse Resp B/P (MAP) Pulse Ox O2 Delivery O2 Flow Rate FiO2 11/16/20 07:00 98.1 104 18 138/72 (94) 93 Room Air 98.1 Physical Exam General: Alert, Oriented X3, Cooperative, No acute distress Heart: Regular rate Lungs: Clear Abdomen: Soft, No tenderness Extremities: No edema, Normal pulses Skin: No significant lesion Assessment and Plan Assessmemt and Plan Problems Medical Problems: (1) Chest pain Status: Acute Comment Review of Relevant I have reviewed the following items kemi (where applicable) has been applied. Labs Laboratory Tests Test 11/14/20 22:10 11/15/20 00:50 9/13/21 03:50 White Blood Count 8.4 x10^3/uL (4.0-11.0) 6.7 x10^3/uL (4.0-11.0) Red Blood Count 4.08 x10^6/uL (3.50-5.40) 3.65 x10^6/uL (3.50-5.40) Hemoglobin 11.8 g/dL (12.0-15.5) 10.5 g/dL (12.0-15.5) Hematocrit 35.9 % (36.0-47.0) 31.3 % (36.0-47.0) Mean Corpuscular Volume 88 fL (79-100) 86 fL (79-100) Mean Corpuscular Hemoglobin 29 pg (25-35) 29 pg (25-35) Mean Corpuscular Hemoglobin Concent 33 g/dL (31-37) 34 g/dL (31-37) Red Cell Distribution Width 15.5 % (11.5-14.5) 15.6 % (11.5-14.5) Platelet Count 221 x10^3/uL (140-400) 205 x10^3/uL (140-400) Neutrophils (%) (Auto) 75 % (31-73) 69 % (31-73) Lymphocytes (%) (Auto) 15 % (24-48) 21 % (24-48) Monocytes (%) (Auto) 9 % (0-9) 9 % (0-9) Eosinophils (%) (Auto) 1 % (0-3) 1 % (0-3) Basophils (%) (Auto) 1 % (0-3) 1 % (0-3) Neutrophils # (Auto) 6.3 x10^3/uL (1.8-7.7) 4.6 x10^3/uL (1.8-7.7) Lymphocytes # (Auto) 1.3 x10^3/uL (1.0-4.8) 1.4 x10^3/uL (1.0-4.8) Monocytes # (Auto) 0.7 x10^3/uL (0.0-1.1) 0.6 x10^3/uL (0.0-1.1) Eosinophils # (Auto) 0.1 x10^3/uL (0.0-0.7) 0.0 x10^3/uL (0.0-0.7) Basophils # (Auto) 0.1 x10^3/uL (0.0-0.2) 0.0 x10^3/uL (0.0-0.2) Sodium Level 142 mmol/L (136-145) 144 mmol/L (136-145) Potassium Level 3.7 mmol/L (3.5-5.1) 3.7 mmol/L (3.5-5.1) Chloride Level 103 mmol/L (98-107) 107 mmol/L (98-107) Carbon Dioxide Level 32 mmol/L (21-32) 31 mmol/L (21-32) Anion Gap 7 (6-14) 6 (6-14) Blood Urea Nitrogen 20 mg/dL (7-20) 18 mg/dL (7-20) Creatinine 1.6 mg/dL (0.6-1.0) 1.4 mg/dL (0.6-1.0) Estimated GFR (Cockcroft-Gault) 30.7 35.8 Glucose Level 108 mg/dL (70-99) 95 mg/dL (70-99) Calcium Level 8.7 mg/dL (8.5-10.1) 8.1 mg/dL (8.5-10.1) Troponin I Quantitative < 0.017 ng/mL (0.000-0.055) < 0.017 ng/mL (0.000-0.055) < 0.017 ng/mL (0.000-0.055) WC-[id number]-[id number]-Type Natriuretic Peptide 379 pg/mL (0-449) Triglycerides Level 93 mg/dL (0-150) Cholesterol Level 91 mg/dL (0-200) LDL Cholesterol, Calculated 36 mg/dL (0-100) VLDL Cholesterol, Calculated 19 mg/dL (0-40) Non-HDL Cholesterol Calculated 55 mg/dL (0-129) HDL Cholesterol 36 mg/dL (40-60) Cholesterol/HDL Ratio 2.5 Medications Current Medications Sodium Chloride 500 ml @ 500 mls/hr 1X ONCE IV Last administered on 11/14/20at 22:30; Start 11/14/20 at 22:30; Stop 11/14/20 at 23:29; Status DC Ondansetron HCl (Zofran) 4 mg PRN Q8HRS PRN IVP NAUSEA/VOMITING 1ST CHOICE; Start 11/14/20 at 23:00; Stop 11/15/20 at 22:59; Status DC Morphine Sulfate (Morphine Sulfate) 4 mg PRN Q4HRS PRN IVP SEVERE PAIN 7-10; Start 11/14/20 at 23:00; Stop 11/15/20 at 22:59; Status DC Acetaminophen (Tylenol) 650 mg PRN Q4HRS PRN PO FEVER > 100.3'F; Start 11/14/20 at 23:00; Stop 11/15/20 at 22:59; Status DC Sodium Chloride 1,000 ml @ 100 mls/hr 1X ONCE IV Last administered on 11/15/20at 01:27; Start 11/14/20 at 23:30; Stop 11/15/20 at 09:29; Status DC Aspirin (Ecotrin) 81 mg DAILY PO ; Start 11/16/20 at 09:00 Atorvastatin Calcium (Lipitor) 20 mg HS PO ; Start 11/15/20 at 21:00; Stop 11/15/20 at 16:16; Status DC Furosemide (Lasix) 40 mg DAILY PO ; Start 11/16/20 at 09:00 Metoprolol Tartrate (Lopressor) 50 mg BID PO ; Start 11/15/20 at 21:00; Stop 11/15/20 at 16:16; Status DC Metoprolol Tartrate (Lopressor Vial) 2.5 mg 1X ONCE IVP Last administered on 11/15/20at 15:36; Start 11/15/20 at 15:30; Stop 11/15/20 at 15:31; Status DC Atorvastatin Calcium (Lipitor) 40 mg HS PO Last administered on 11/15/20at 20:47; Start 11/15/20 at 21:00 Metoprolol Tartrate (Lopressor) 50 mg BID PO Last administered on 11/15/20at 20:47; Start 11/15/20 at 16:15 Active Scripts Active Nasal Decongestant (Oxymetazoline Hcl) 30 Ml Kahlotus 2 Kahlotus NS PRN Q12HR PRN 14 Days Reported Prednisone 20 Mg Tablet 1 Tab PO PRN DAILY PRN Potassium Gluconate 99 Mg Tablet 99 Mg PO DAILY Atorvastatin Calcium 20 Mg Tablet 20 Mg PO HS Losartan Potassium 50 Mg Tablet 50 Mg PO DAILY Aspir-Low (Aspirin) 81 Mg Tablet.dr 1 Tab PO DAILY Lasix (Furosemide) 40 Mg Tablet 1 Tab PO DAILY Metoprolol Tartrate 50 Mg Tablet 1 Tab PO BID Vitals/I & O Vital Sign - Last 24 Hours 11/15/20 11/15/20 11/15/20 11/15/20 11:00 15:00 15:36 17:34 Temp 98.3 98.3 98.3 98.3 Pulse 72 125 125 125 Resp 18 17 B/P (MAP) 140/59 (86) 139/75 (96) 139/75 139/75 Pulse Ox 99 94 O2 Delivery Room Air Room Air 11/15/20 11/15/20 11/15/20 11/15/20 19:00 20:10 20:47 20:49 Temp 101.0 100.2 101.0 100.2 Pulse 101 101 Resp 18 B/P (MAP) 116/66 (83) 116/66 Pulse Ox 93 O2 Delivery Room Air Room Air 11/15/20 11/16/20 11/16/20 23:00 03:00 07:00 Temp 98.0 99.6 98.1 98.0 99.6 98.1 Pulse 88 83 104 Resp 18 18 18 B/P (MAP) 119/60 (79) 120/72 (88) 138/72 (94) Pulse Ox 91 92 93 O2 Delivery Room Air Room Air Room Air Intake and Output 11/15/20 11/15/20 11/16/20 15:00 23:00 07:00 Intake Total 120 ml 120 ml Balance 120 ml 120 ml Justicifation of Admission Dx: Justifications for Admission: Justification of Admission Dx: No MARI MUNOZ MD Nov 16, 2020 08:22
[2020-11-16] MEDS ORDERED: ASPIRIN ENTERIC COATED 81 MG TABLET.DR. PO SCH (09:00)
[2020-11-16] MEDS ORDERED: FUROSEMIDE 40 MG TABLET. PO SCH (09:00)
[2020-11-16] MEDS: METOPROLOL TART IMMED RELEASE 50 MG TABLET. PO SCH (09:35)
--- NOTE | 2020-11-16 10:27 | PDOC3 ---
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 AMI ruled out CAD s/p CABG 2012. Follows with Dr. Michaelle DIEGO Hypertension; controlled ADMITTED CARDIOLOGY CONSULT Trend troponin i tele monitor dvt prophylaxis consider out pt stress //outpatient ischemia evaluation through her primary sort line. 11-16-20 D/C PLANNING 33 MIN Justifications for Admission Justifications for Admission Other Justification History of Present Illness History of Present Illness Identification/Chief Complaint Chief Complaint chest pain History of Present Illness History of Present Illness 85-year-old female patient with self-reported history of cardiac disease presented the emergency department complaining of chest pain that started around 1400 9-12 and is intermittent, sharp and radiates from her front of the chest to the back in between her shoulders. she had a additional episode of chest pain around aged 89 9-12 when she called her family to take her to the emergency department. troponin i neg x 3 She admits to being under recent stress due to a recent of a family member. 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 in 2016 Although, her left-sided weakness resolved relatively quickly Cardiovascular: CAD, HTN Pulmonary: No pertinent hx CENTRAL NERVOUS SYSTEM: Other GI: No pertinent hx Heme/Onc: No pertinent hx Hepatobiliary: No pertinent hx Psych: No pertinent hx Musculoskeletal: Osteoarthritis Rheumatologic: No pertinent hx Infectious disease: No pertinent hx Renal/: No pertinent hx Endocrine: No pertinent hx, Osteoporosis Past Surgical History Past Surgical History: CABG Family History Family History: High Cholestrol, Hypertension Social History Smoke: No ALCOHOL: none Drugs: None Current Problem List Problem List Problems Medical Problems: (1) Chest pain Status: Acute Current Medications Current Medications Current Medications Sodium Chloride 500 ml @ 500 mls/hr 1X ONCE IV Last administered on 11/14/20at 22:30; Start 11/14/20 at 22:30; Stop 11/14/20 at 23:29; Status DC Ondansetron HCl (Zofran) 4 mg PRN Q8HRS PRN IVP NAUSEA/VOMITING 1ST CHOICE; Start 11/14/20 at 23:00; Stop 11/15/20 at 22:59 Morphine Sulfate (Morphine Sulfate) 4 mg PRN Q4HRS PRN IVP SEVERE PAIN 7-10; Start 11/14/20 at 23:00; Stop 11/15/20 at 22:59 Acetaminophen (Tylenol) 650 mg PRN Q4HRS PRN PO FEVER > 100.3'F; Start 11/14/20 at 23:00; Stop 11/15/20 at 22:59 Sodium Chloride 1,000 ml @ 100 mls/hr 1X ONCE IV Last administered on 11/15/20at 01:27; Start 11/14/20 at 23:30; Stop 11/15/20 at 09:29; Status DC Active Scripts Active Nasal Decongestant (Oxymetazoline Hcl) 30 Ml [place] 2 [place] NS PRN Q12HR PRN 14 Days Reported Prednisone 20 Mg Tablet 1 Tab PO PRN DAILY PRN Potassium Gluconate 99 Mg Tablet 99 Mg PO DAILY Atorvastatin Calcium 20 Mg Tablet 20 Mg PO HS Losartan Potassium 50 Mg Tablet 50 Mg PO DAILY Aspir-Low (Aspirin) 81 Mg Tablet.dr 1 Tab PO DAILY Lasix (Furosemide) 40 Mg Tablet 1 Tab PO DAILY Metoprolol Tartrate 50 Mg Tablet 1 Tab PO BID Allergies Allergies: Coded Allergies: No Known Drug Allergies (Unverified , 12/02/14) ROS Review of System 14 pt ros otherwise neg General: No: Chills, Night Sweats, Fatigue, Malaise, Appetite, Other PSYCHOLOGICAL ROS: YES: Anxiety Eyes: Yes Decreased vision; No Blurry vision, No Double vision, No Dry eyes, No Excessive tearing, No Eye Pain, No Itchy Eyes, No Loss of vision, No Photophobia, No Scotomata, No Uses contacts, No Uses glasses, No Other HEENT: No: Heacaches, Visual Changes, Hearing change, Nasal congestion, Nasal discharge, Oral lesions, Sinus pain, Sore Throat, Epistaxis, Sneezing, Snoring, Tinnitus, Vertigo, Vocal changes, Other ALLERGY AND IMMUNOLOGY: No: Hives, Insect Bite Sensitivity, Itchy/Watery Eyes, Nasal Congestion, Post Nasal Drip, Seasonal Allergies, Other Hematological and Lymphatic: No: Bleeding Problems, Blood Clots, Blood Transf usions, Brusing, Night Sweats, Pallor, Swollen Lymph Nodes, Other ENDOCRINE: No: Breast Changes, Galactorrhea, Hair Pattern Changes, Hot Flashes, Malaise/lethargy, Mood Swings, Palpitations, Polydipsia/polyuria, Skin Changes, Temperature Intolerance, Unexpected Weight Changes, Other Cardiovascular: yes Chest Pain; No Palpitations, No Orthopnea, No Paroxysmal Noc. Dyspnea, No Edema, No Lt Headedness, No Other Gastrointestinal: No Nausea, No Vomiting, No Abdominal Pain, No Diarrhea, No Constipation, No Melena, No Hematochezia, No Other Genitourinary: No Dysuria, No Frequency, No Incontinence, No Hematuria, No Retention, No Discharge, No Urgency, No Pain, No Flank Pain, No Other, No , No , No , No , No , No , No Musculoskeletal: Yes Joint Stiffness; No Gait Disturbance, No Joint Pain, No Joint Swelling, No Muscle Pain, No Muscular Weakness, No Pain In:, No Swelling In:, No Other Neurological: No Behavorial Changes, No Bowel/Bladder ControlChng, No Confusion, No Dizziness, No Gait Disturbance, No Headaches, No Impaired Coord/balance, No Memory Loss, No Numbness/Tingling, No Seizures, No Speech Problems, No Tremors, No Visual Changes, No Weakness, No Other Vitals Vitals Vital Signs Date Time Temp Pulse Resp B/P (MAP) Pulse Ox O2 Delivery O2 Flow Rate FiO2 11/16/20 07:00 98.1 104 18 138/72 (94) 93 Room Air 98.1 Physical Exam General: Alert, Oriented X3, Cooperative, No acute distress Heart: Regular rate Lungs: Clear Abdomen: Soft, No tenderness Extremities: No edema, Normal pulses Skin: No significant lesion Assessment and Plan Assessmemt and Plan Problems Medical Problems: (1) Chest pain Status: Acute FINAL DIAGNOSIS Problems Medical Problems: (1) Chest pain Status: Acute Brief Hospital Course Ms. Kim is a 85 old [sex] who presented with [CHEST PAIN ] CONDITION AT DISCHARGE: Improved Discharge Medications Current Medications Sodium Chloride 500 ml @ 500 mls/hr 1X ONCE IV Last administered on 11/14/20at 22:30; Start 11/14/20 at 22:30; Stop 11/14/20 at 23:29; Status DC Ondansetron HCl (Zofran) 4 mg PRN Q8HRS PRN IVP NAUSEA/VOMITING 1ST CHOICE; Start 11/14/20 at 23:00; Stop 11/15/20 at 22:59; Status DC Morphine Sulfate (Morphine Sulfate) 4 mg PRN Q4HRS PRN IVP SEVERE PAIN 7-10; Start 11/14/20 at 23:00; Stop 11/15/20 at 22:59; Status DC Acetaminophen (Tylenol) 650 mg PRN Q4HRS PRN PO FEVER > 100.3'F; Start 11/14/20 at 23:00; Stop 11/15/20 at 22:59; Status DC Sodium Chloride 1,000 ml @ 100 mls/hr 1X ONCE IV Last administered on 11/15/20at 01:27; Start 11/14/20 at 23:30; Stop 11/15/20 at 09:29; Status DC Aspirin (Ecotrin) 81 mg DAILY PO Last administered on 11/16/20at 09:36; Start 11/16/20 at 09:00 Atorvastatin Calcium (Lipitor) 20 mg HS PO ; Start 11/15/20 at 21:00; Stop 11/15/20 at 16:16; Status DC Furosemide (Lasix) 40 mg DAILY PO Last administered on 11/16/20at 09:34; Start 11/16/20 at 09:00 Metoprolol Tartrate (Lopressor) 50 mg BID PO ; Start 11/15/20 at 21:00; Stop at 16:16; Status DC Metoprolol Tartrate (Lopressor Vial) 2.5 mg 1X ONCE IVP Last administered on 11/15/20at 15:36; Start 11/15/20 at 15:30; Stop 11/15/20 at 15:31; Status DC Atorvastatin Calcium (Lipitor) 40 mg HS PO Last administered on 11/15/20at 20:47; Start 11/15/20 at 21:00 Metoprolol Tartrate (Lopressor) 50 mg BID PO Last administered on 11/16/20at 09:35; Start 11/15/20 at 16:15 Active Scripts Active Nasal Decongestant (Oxymetazoline Hcl) 30 Ml [place] 2 [place] NS PRN Q12HR PRN 14 Days Reported Prednisone 20 Mg Tablet 1 Tab PO PRN DAILY PRN Potassium Gluconate 99 Mg Tablet 99 Mg PO DAILY Atorvastatin Calcium 20 Mg Tablet 20 Mg PO HS Losartan Potassium 50 Mg Tablet 50 Mg PO DAILY Aspir-Low (Aspirin) 81 Mg Tablet.dr 1 Tab PO DAILY Lasix (Furosemide) 40 Mg Tablet 1 Tab PO DAILY Metoprolol Tartrate 50 Mg Tablet 1 Tab PO BID Vital Signs Vital Signs Date Time Temp Pulse Resp B/P (MAP) Pulse Ox O2 Delivery O2 Flow Rate FiO2 11/16/20 09:35 104 138/72 11/16/20 08:00 Room Air 11/16/20 07:00 98.1 18 93 98.1 Labs Laboratory Tests Test 11/14/20 22:10 11/15/20 00:50 11/15/20 03:50 White Blood Count 8.4 x10^3/uL (4.0-11.0) 6.7 x10^3/uL (4.0-11.0) Red Blood Count 4.08 x10^6/uL (3.50-5.40) 3.65 x10^6/uL (3.50-5.40) Hemoglobin 11.8 g/dL (12.0-15.5) 10.5 g/dL (12.0-15.5) Hematocrit 35.9 % (36.0-47.0) 31.3 % (36.0-47.0) Mean Corpuscular Volume 88 fL (79-100) 86 fL (79-100) Mean Corpuscular Hemoglobin 29 pg (25-35) 29 pg (25-35) Mean Corpuscular Hemoglobin Concent 33 g/dL (31-37) 34 g/dL (31-37) Red Cell Distribution Width 15.5 % (11.5-14.5) 15.6 % (11.5-14.5) Platelet Count 221 x10^3/uL (140-400) 205 x10^3/uL (140-400) Neutrophils (%) (Auto) 75 % (31-73) 69 % (31-73) Lymphocytes (%) (Auto) 15 % (24-48) 21 % (24-48) Monocytes (%) (Auto) 9 % (0-9) 9 % (0-9) Eosinophils (%) (Auto) 1 % (0-3) 1 % (0-3) Basophils (%) (Auto) 1 % (0-3) 1 % (0-3) Neutrophils # (Auto) 6.3 x10^3/uL (1.8-7.7) 4.6 x10^3/uL (1.8-7.7) Lymphocytes # (Auto) 1.3 x10^3/uL (1.0-4.8) 1.4 x10^3/uL (1.0-4.8) Monocytes # (Auto) 0.7 x10^3/uL (0.0-1.1) 0.6 x10^3/uL (0.0-1.1) Eosinophils # (Auto) 0.1 x10^3/uL (0.0-0.7) 0.0 x10^3/uL (0.0-0.7) Basophils # (Auto) 0.1 x10^3/uL (0.0-0.2) 0.0 x10^3/uL (0.0-0.2) Sodium Level 142 mmol/L (136-145) 144 mmol/L (136-145) Potassium Level 3.7 mmol/L (3.5-5.1) 3.7 mmol/L (3.5-5.1) Chloride Level 103 mmol/L (98-107) 107 mmol/L (98-107) Carbon Dioxide Level 32 mmol/L (21-32) 31 mmol/L (21-32) Anion Gap 7 (6-14) 6 (6-14) Blood Urea Nitrogen 20 mg/dL (7-20) 18 mg/dL (7-20) Creatinine 1.6 mg/dL (0.6-1.0) 1.4 mg/dL (0.6-1.0) Estimated GFR (Cockcroft-Gault) 30.7 35.8 Glucose Level 108 mg/dL (70-99) 95 mg/dL (70-99) Calcium Level 8.7 mg/dL (8.5-10.1) 8.1 mg/dL (8.5-10.1) Troponin I Quantitative < 0.017 ng/mL (0.000-0.055) < 0.017 ng/mL (0.000-0.055) < 0.017 ng/mL (0.000-0.055) ZY-Njr-A-Type Natriuretic Peptide 379 pg/mL (0-449) Triglycerides Level 93 mg/dL (0-150) Cholesterol Level 91 mg/dL (0-200) LDL Cholesterol, Calculated 36 mg/dL (0-100) VLDL Cholesterol, Calculated 19 mg/dL (0-40) Non-HDL Cholesterol Calculated 55 mg/dL (0-129) HDL Cholesterol 36 mg/dL (40-60) Cholesterol/HDL Ratio 2.5 Allergies Allergies Coded Allergies Type Severity Reaction Last Updated Verified No Known Drug Allergies 12/02/14 No Disposition/Orders: D/C to Home Justicifation of Admission Dx: Justifications for Admission: Justification of Admission Dx: No MARI MUNOZ MD Nov 16, 2020 10:27
[2020-11-16] MEDS ORDERED: ATOR20TA58 PO (10:29)
--- NOTE | 2020-11-16 10:30 | DISCH ---
DISCHARGE INSTRUCTIONS Condition on Discharge Condition on Discharge: Stable Activity After Discharge Activity Instructions for Disc: No restrictions, Activity as tolerated Lifting Instructions after Dis: No heavy lifting, No pulling or pushing Driving Instructions after Dis: Do not drive Weight Bearing Status after Di: As tolerated Diet after Discharge Diet after Discharge: Cardiac Liquid Texture: Thin Liquid Wound Incision Care Wound/Incision Care: Do not change dressing Checks after Discharge Checks after discharge: Check blood press - daily Contacting the DR. 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
[2020-11-16 11:22] VITALS: BP 130/71
--- NOTE | 2020-11-16 12:40 | NUR ---
Patient was escorted out by family and Mert to main entrance by wheelchair.
--- NOTE | 2020-11-16 14:48 | CARD ---
MR#: [id number] Date of Study: 11/16/2020 Ordering Physician: MEHUL PASCUAL, Referring Physician: MEHUL PASCUAL, Tech: Amy Sanchez [facility] APPROVED REPORT EXAM: Two-dimensional and M-mode echocardiogram with Doppler and color Doppler. Other Information Quality : Technically LimitedHR: 95bpm Rhythm : NSRTechnically limited study due to body habitus. INDICATION Cardiac Disease: CAD RISK FACTORS Hypertension Hyperlipidemia 2D DIMENSIONS RVDd3.2 (2.9-3.5cm)Left Atrium(2D)6.1 (1.6-4.0cm) IVSd1.3 (0.7-1.1cm)Aortic Root(2D)3.5 (2.0-3.7cm) LVDd4.1 (3.9-5.9cm)LVOT Diameter2.1 (1.8-2.4cm) PWd1.3 (0.7-1.1cm)LVDs3.4 (2.5-4.0cm) FS (%) 17.3 %SV27.0 ml LVEF(%)36.6 (>50%) Aortic Valve AoV Peak Marcus.154.1cm/sAoV VTI30.0cm AO Peak GR.9.5mmHgLVOT Peak Marcus.118.5cm/s AO Mean GR.5mmHgAVA (VMAX)2.66cm2 Mitral Valve MV E Yiithpcw132.3cm/sMV DECEL YTOO212gj MV A Mtymcffj85.7cm/sE/A Ratio1.5 Pulmonary Valve PV Peak Sxtndgoa438.4cm/s Tricuspid Valve TR P. Qlmsayde336qw/sTR Peak Gr.32mmHg LEFT VENTRICLE The left ventricle is normal size. There is mild concentric left ventricular hypertrophy. The left ve ntricular systolic function is normal and the ejection fraction is within normal range. Estimated eje ction fraction 60-65%. Septal motion suggestive of conduction defect. Otherwise, there is normal LV s egmental wall motion. Transmitral Doppler flow pattern is normal for age. RIGHT VENTRICLE The right ventricle is normal size. There is normal right ventricular wall thickness. The right ventr icular systolic function is normal. ATRIA The left atrium is moderately dilated. The right atrium size is normal. The interatrial septum is int act with no evidence for an atrial septal defect or patent foramen ovale as noted on 2-D or Doppler i maging. AORTIC VALVE The aortic valve is sclerotic and trileaflet. Doppler and Color Flow revealed no significant aortic r egurgitation. There is no significant aortic valvular stenosis. MITRAL VALVE The mitral valve is normal in structure and function. There is no evidence of mitral valve prolapse. There is no mitral valve stenosis. Doppler and Color Flow revealed no mitral valve regurgitation note d. TRICUSPID VALVE The tricuspid valve is normal in structure and function. Doppler and Color Flow revealed trace tricus pid regurgitation. Estimated PAP 35 mmHg. There is no tricuspid valve stenosis. PULMONIC VALVE Doppler and Color Flow revealed trace pulmonic valvular regurgitation. There is no pulmonic valvular stenosis. GREAT VESSELS The aortic root is normal in size. The ascending aorta is normal in size. The IVC is normal in size a nd collapses >50% with inspiration. PERICARDIAL EFFUSION There is no evidence of significant pericardial effusion. Critical Notification Critical Value: No <Conclusion> The left ventricular systolic function is normal and the ejection fraction is within normal range. E stimated ejection fraction 60-65%. Septal motion suggestive of conduction defect. Otherwise, there is normal LV segmental wall motion. Signed by : Buzz Chase, Electronically Approved : 11/16/2020 14:47:52
--- NOTE | 2020-11-16 16:53 | PDOC ---
PROGRESS NOTES Date of Service DATE: 11/16/20 TIME: 16:51 Subjective Subjective Patient seen and examined Objective Objective Vital Signs Date Time Temp Pulse Resp B/P (MAP) Pulse Ox O2 Delivery O2 Flow Rate FiO2 11/16/20 11:22 98.6 92 20 130/71 (90) 99 Room Air 98.6 Intake and Output 11/16/20 07:00 Intake Total 240 ml Balance 240 ml Intake Oral 240 ml # Voids 4 Physical Exam Abdomen: Normal bowel sounds Heart: Regular rate General: No acute distress Lungs: Other (Slightly decreased breath sounds) Assessment Assessment Problems Medical Problems: (1) Chest pain Status: Acute Chest pain, atypical. AMI ruled out. Troponin x3 is normal. The patient continues to feel better. Continuing aspirin and beta-blockers. CAD s/p CABG 2012. Follows with Dr. Michaelle DIEGO. Continue present medical treatments. Echo shows normal LV systolic function. 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 Hypertension; controlled Hyperlipidemia; statin FLORIDALMA; improved PAFIB; post-operative. presently SR H/o CVA Comment Review of Relevant I have reviewed the following items kemi (where applicable) has been applied. Labs Laboratory Tests Test 11/14/20 22:10 11/15/20 00:50 11/15/20 03:50 White Blood Count 8.4 x10^3/uL (4.0-11.0) 6.7 x10^3/uL (4.0-11.0) Red Blood Count 4.08 x10^6/uL (3.50-5.40) 3.65 x10^6/uL (3.50-5.40) Hemoglobin 11.8 g/dL (12.0-15.5) 10.5 g/dL (12.0-15.5) Hematocrit 35.9 % (36.0-47.0) 31.3 % (36.0-47.0) Mean Corpuscular Volume 88 fL (79-100) 86 fL (79-100) Mean Corpuscular Hemoglobin 29 pg (25-35) 29 pg (25-35) Mean Corpuscular Hemoglobin Concent 33 g/dL (31-37) 34 g/dL (31-37) Red Cell Distribution Width 15.5 % (11.5-14.5) 15.6 % (11.5-14.5) Platelet Count 221 x10^3/uL (140-400) 205 x10^3/uL (140-400) Neutrophils (%) (Auto) 75 % (31-73) 69 % (31-73) Lymphocytes (%) (Auto) 15 % (24-48) 21 % (24-48) Monocytes (%) (Auto) 9 % (0-9) 9 % (0-9) Eosinophils (%) (Auto) 1 % (0-3) 1 % (0-3) Basophils (%) (Auto) 1 % (0-3) 1 % (0-3) Neutrophils # (Auto) 6.3 x10^3/uL (1.8-7.7) 4.6 x10^3/uL (1.8-7.7) Lymphocytes # (Auto) 1.3 x10^3/uL (1.0-4.8) 1.4 x10^3/uL (1.0-4.8) Monocytes # (Auto) 0.7 x10^3/uL (0.0-1.1) 0.6 x10^3/uL (0.0-1.1) Eosinophils # (Auto) 0.1 x10^3/uL (0.0-0.7) 0.0 x10^3/uL (0.0-0.7) Basophils # (Auto) 0.1 x10^3/uL (0.0-0.2) 0.0 x10^3/uL (0.0-0.2) Sodium Level 142 mmol/L (136-145) 144 mmol/L (136-145) Potassium Level 3.7 mmol/L (3.5-5.1) 3.7 mmol/L (3.5-5.1) Chloride Level 103 mmol/L (98-107) 107 mmol/L (98-107) Carbon Dioxide Level 32 mmol/L (21-32) 31 mmol/L (21-32) Anion Gap 7 (6-14) 6 (6-14) Blood Urea Nitrogen 20 mg/dL (7-20) 18 mg/dL (7-20) Creatinine 1.6 mg/dL (0.6-1.0) 1.4 mg/dL (0.6-1.0) Estimated GFR (Cockcroft-Gault) 30.7 35.8 Glucose Level 108 mg/dL (70-99) 95 mg/dL (70-99) Calcium Level 8.7 mg/dL (8.5-10.1) 8.1 mg/dL (8.5-10.1) Troponin I Quantitative < 0.017 ng/mL (0.000-0.055) < 0.017 ng/mL (0.000-0.055) < 0.017 ng/mL (0.000-0.055) QQ-Vcj-L-Type Natriuretic Peptide 379 pg/mL (0-449) Triglycerides Level 93 mg/dL (0-150) Cholesterol Level 91 mg/dL (0-200) LDL Cholesterol, Calculated 36 mg/dL (0-100) VLDL Cholesterol, Calculated 19 mg/dL (0-40) Non-HDL Cholesterol Calculated 55 mg/dL (0-129) HDL Cholesterol 36 mg/dL (40-60) Cholesterol/HDL Ratio 2.5 Medications Current Medications Sodium Chloride 500 ml @ 500 mls/hr 1X ONCE IV Last administered on 11/14/20at 22:30; Start 11/14/20 at 22:30; Stop 11/14/20 at 23:29; Status DC Ondansetron HCl (Zofran) 4 mg PRN Q8HRS PRN IVP NAUSEA/VOMITING 1ST CHOICE; Start 11/14/20 at 23:00; Stop 11/15/20 at 22:59; Status DC Morphine Sulfate (Morphine Sulfate) 4 mg PRN Q4HRS PRN IVP SEVERE PAIN 7-10; Start 11/14/20 at 23:00; Stop 11/15/20 at 22:59; Status DC Acetaminophen (Tylenol) 650 mg PRN Q4HRS PRN PO FEVER > 100.3'F; Start 11/14/20 at 23:00; Stop 11/15/20 at 22:59; Status DC Sodium Chloride 1,000 ml @ 100 mls/hr 1X ONCE IV Last administered on 11/15/20at 01:27; Start 11/14/20 at 23:30; Stop 11/15/20 at 09:29; Status DC Aspirin (Ecotrin) 81 mg DAILY PO Last administered on 11/16/20at 09:36; Start 11/16/20 at 09:00 Atorvastatin Calcium (Lipitor) 20 mg HS PO ; Start 11/15/20 at 21:00; Stop 11/15/20 at 16:16; Status DC Furosemide (Lasix) 40 mg DAILY PO Last administered on 11/16/20at 09:34; Start 11/16/20 at 09:00 Metoprolol Tartrate (Lopressor) 50 mg BID PO ; Start 11/15/20 at 21:00; Stop 11/15/20 at 16:16; Status DC Metoprolol Tartrate (Lopressor Vial) 2.5 mg 1X ONCE IVP Last administered on 11/15/20at 15:36; Start 11/15/20 at 15:30; Stop 11/15/20 at 15:31; Status DC Atorvastatin Calcium (Lipitor) 40 mg HS PO Last administered on 11/15/20at 20:47; Start 11/15/20 at 21:00 Metoprolol Tartrate (Lopressor) 50 mg BID PO Last administered on 11/16/20at 09:35; Start 11/15/20 at 16:15 Active Scripts Active Atorvastatin Calcium 20 Mg Tablet 40 Mg PO HS 30 Days Nasal Decongestant (Oxymetazoline Hcl) 30 Ml [place] 2 [place] NS PRN Q12HR PRN 14 Days Reported Potassium Gluconate 99 Mg Tablet 99 Mg PO DAILY Aspir-Low (Aspirin) 81 Mg Tablet.dr 1 Tab PO DAILY Lasix (Furosemide) 40 Mg Tablet 1 Tab PO DAILY Metoprolol Tartrate 50 Mg Tablet 1 Tab PO BID Vitals/I & O Vital Sign - Last 24 Hours 11/15/20 11/15/20 11/15/20 11/15/20 17:34 19:00 20:10 20:47 Temp 101.0 101.0 Pulse 125 101 101 Resp 18 B/P (MAP) 139/75 116/66 (83) 116/66 Pulse Ox 93 O2 Delivery Room Air Room Air 11/15/20 11/15/20 11/16/20 11/16/20 20:49 23:00 03:00 07:00 Temp 100.2 98.0 99.6 98.1 100.2 98.0 99.6 98.1 Pulse 88 83 104 Resp 18 18 18 B/P (MAP) 119/60 (79) 120/72 (88) 138/72 (94) Pulse Ox 91 92 93 O2 Delivery Room Air Room Air Room Air 11/16/20 11/16/20 11/16/20 08:00 09:35 11:22 Temp 98.6 98.6 Pulse 104 92 Resp 20 B/P (MAP) 138/72 130/71 (90) Pulse Ox 99 O2 Delivery Room Air Room Air Intake and Output 11/15/20 11/15/20 11/16/20 15:00 23:00 07:00 Intake Total 120 ml 120 ml Balance 120 ml 120 ml Justifications for Admission Other Justification YANELI RIVERA MD Nov 16, 2020 16:53
== END 2020-11-16 12:40 | disposition home or self-care (01) ==
LOC: ER 19:48 → ED HOLD 22:52 → 5 SOUTH 11-15 00:45
PROVIDERS: ADMIT Student in an Organized Health Care Education/Training Program; ATTEND Student in an Organized Health Care Education/Training Program
DX: R07.89 Other chest pain (principal); I25.10 Atherosclerotic heart disease of native coronary artery without angina pectoris; I48.0 Paroxysmal atrial fibrillation; R53.1 Weakness; I10 Essential (primary) hypertension; D64.9 Anemia, unspecified; E78.5 Hyperlipidemia, unspecified; N17.9 Acute kidney failure, unspecified; M19.90 Unspecified osteoarthritis, unspecified site; Z79.82 Long term (current) use of aspirin; Z79.899 Other long term (current) drug therapy; Z82.49 Family history of ischemic heart disease and other diseases of the circulatory system; Z86.73 Personal history of transient ischemic attack (TIA), and cerebral infarction without residual deficits; Z95.1 Presence of aortocoronary bypass graft; Z96.649 Presence of unspecified artificial hip joint
CPT/HCPCS: 36415; 71045; 80048; 80061; 83880; 84484; 85025; 93005; 93306; 96361; 96374; 99285; G0378; J3490; J7030; J7040; G0379

== ENCOUNTER 2021-05-22 23:47 | Emergency (ER) | payer BC ==
[~2021-05-22] VITALS: Ht 165.1 cm; Wt 62.0 kg
[~2021-05-22 23:47] MED LIST changes: +ATOR20TA58 PO; +LOSA-73 PO; +POTA99TA3 PO; +PRED20TA PO
--- NOTE | 2021-05-23 00:39 | PHYS DOC ---
Past Medical History Past Medical History: CAD, Hypertension Past Surgical History: Coronary Bypass Surgery, Hip Replacement, Other Additional Past Surgical Histo: ELBOW, left hip Smoking Status: Never Smoker Alcohol Use: None Drug Use: None General Adult EDM: Chief Complaint: UPPER EXTREMITY PAIN HPI: HPI: Patient is a 86 year old female with history of hypertension, CAD, presenting to the ED today complaining of mild intermittent left elbow pain, symptoms have been going on for years. Patient denies any new injuries but reports old injury to the left elbow years ago with screws. States the pain is worse on range of motion and when the weather changes from warm to cold or rains. She states she took Tylenol with minimal relief though she states she does not want anything for pain.. Review of Systems: Review of Systems: Constitutional: Denies fever or chills. []. [] Musculoskeletal: Reports left elbow pain Integument: Denies rash. [] Neurologic: Denies headache, focal weakness or sensory changes. [] Psychiatric: Denies depression or anxiety. [] Heart Score: C/O Chest Pain: N/A Risk Factors: Risk Factors: DM, Current or recent (<one month) smoker, HTN, HLP, family history of CAD, obesity. Risk Scores: Score 0 - 3: 2.5% MACE over next 6 weeks - Discharge Home Score 4 - 6: 20.3% MACE over next 6 weeks - Admit for Clinical Observation Score 7 - 10: 72.7% MACE over next 6 weeks - Early Invasive Strategies Allergies: Allergies: Allergies Coded Allergies Type Severity Reaction Last Updated Verified No Known Drug Allergies 12/02/14 No Physical Exam: PE: Constitutional: Well developed, well nourished, no acute distress, non-toxic appearance. [] Skin: Warm, dry, no erythema, no rash. [] Back: No tenderness, no CVA tenderness. [] Extremities: Left elbow with no obvious deformity, no edema, no ecchymosis, no bruises. Full active as well as passive range of motion to the elbow. Adequate plantarflexion and dorsiflexion of the left forearm. Full range of motion to the left fingers. Adequate radial, medial, ulnar sensation to the left upper extremity. +2 left radial pulse. Cap refill less than 2 seconds the left fingers. Neurologic: Alert and oriented X 3, normal motor function, normal sensory function, no focal deficits noted. [] Psychologic: Affect normal, judgement normal, mood normal. [] EKG: EKG: [] Radiology/Procedures: Radiology/Procedures: [] Course & Med Decision Making: Course & Med Decision Making Pertinent Labs and Imaging studies reviewed. (See chart for details) This 86-year-old female patient presented to the ED today with chronic left elbow pain. No new injury. Left hip x-rays interpreted by Dr. Bailey are negative for any acute findings. Ice elevation encouraged. Tylenol for pain. Follow-up with orthopedic doctor and PCP in the next 7 days Dragon Disclaimer: Dragon Disclaimer: This electronic medical record was generated, in whole or in part, using a voice recognition dictation system. Departure Departure Impression: Primary Impression: Left elbow pain Disposition: HOME / SELF CARE / HOMELESS Condition: STABLE Referrals: SHIVA SANTOS MD (PCP) Follow-up in 1 week KEAGAN DIANE II, MD Follow-up in 1 week Patient Instructions: Musculoskeletal Pain Additional Instructions: You were seen for left elbow pain. Your left elbow x-rays are negative for any acute findings. Try to ice and elevate the extremity. Take Tylenol as needed for pain. Please follow-up with the orthopedic doctor provided in 1 week LING ROMO APRN May 23, 2021 00:39
[2021-05-23 01:37] VITALS: BP 135/101
--- NOTE | 2021-05-23 03:10 | RAD ---
Exam: XR ELBOW COMPLETE_LEFT 3+VIEWS History: Pain. Comparison: None. Findings: There are postsurgical changes from left elbow arthroplasty with well-seated distal humerus and proxi mal ulnar components. Plate and screw fixation partially visualized at the mid radius and ulna withou t evidence of complication. Dystrophic calcification posterior to the distal humerus. No significant effusion. No focal soft tissue swelling. Impression: 1. Postsurgical changes of the left elbow without acute osseous abnormality. Electronically signed by: Brenton Gaspar MD (05/23/2021 3:07 AM) [facility]
== END 2021-05-23 01:43 | disposition home or self-care (01) ==
LOC: ER 23:47
DX: M25.522 Pain in left elbow (principal); I10 Essential (primary) hypertension; I25.10 Atherosclerotic heart disease of native coronary artery without angina pectoris; Z95.1 Presence of aortocoronary bypass graft
CPT/HCPCS: 73080; 99283